=== PATIENT | male | born 1965 | race Caucasian/White ===

== ENCOUNTER 2017-06-29 06:00 | Inpatient (IN) ==
[2017-06-29] MEDS ORDERED: *HR* Midazolam HCl 2 MG/2 ML VIAL ONE ×2 (06:59→07:06)
[2017-06-29] MEDS ORDERED: *HR* FentaNYL (PF) 100 MCG/2 ML VIAL ONE (06:59)
[2017-06-29] MEDS ORDERED: Tirofiban 5 MG/100ML 5 MG/100 ML BAG IV ONE (07:10)
--- NOTE | 2017-06-29 08:23 | Invasive Diagnostic Lab Proc ---
Name: Torey Hale Date of Study: 06/29/2017 Date: 1965 Ht: 68.0in Medical Record#: [id number] Age: 52 Wt: 225.00lb Gender: Male BSA: 2.15 Order #: [id number] BMI: 34.21 Physicians Procedure Physician: Abraham Gamble MD, [facility] Referring MD: Referring MD: Staff Name Position Time In Rubi Galo RN Monitor 06:53 AM Sabas Walker RN Ham Rolling Machine Operator 06:53 AM Sheridan Dang RN Ham Rolling Machine Operator 06:53 AM Bette Villalobos RT Scrub 06:53 AM Merly Montero RT (R) Scrub Indications Indication STEMI Procedures Performed Procedure L HRT ARTERY/VENTRICLE ANGIO PRQ CARD REVASC NH 1 VSL Pre-Procedure Checklist Informed consent is complete signed and on chart. H&P is on chart. ID band is on and ID verified with patient. Patient NPO for procedure The procedure was described for the patient and questions were answered. Blood Pressure: 146/92 ECG is on chart. Rhythm: NSR Plan of Care Patient will tolerate the procedure without complications. Adequate level of comfort will be maintained. Hemodynamics will remain stable Patient will recover from procedure without complications. Respiratory function will be maintained. Cardiac rhythm will remain stable. Patient temperature will be maintained. Patient and/or family have verbalized understanding of the procedure. Patient Education Chief Complaint/Reason for Test: Cardiac Cath Developmental Category: Adult (18-64 years) Developmentally Appropriate for Age: Yes Learning Barriers: None Education Needs: Procedure Education Method: Verbal Information Taught: Cardiac Cath Educational Evaluation: Able to repeat information Intravenous Access Time IV Size Location DC'd Fluid/Drip Rate Units RN 06:44 AM 18g 1 1/4" Patent On Arrival Rt Rubi Montes RN 06:44 AM 20g 1 1/4" Patent On Arrival Lt AntecRubi Alva RN Allergies No Known Allergies Vital Signs Time BP (mmHg) HR (bpm) O2 Sat. RR (bpm) LOC 06:54 AM / % 5 = Fully awake and oriented or at pre-proc level 06:54 AM / % 4 = Oriented but drowsy 07:09 AM / % 4 = Oriented but drowsy 07:24 AM / % 4 = Oriented but drowsy 06:58 AM 146 / 92 91 97 % 16 07:03 AM 149 / 86 80 100 % 21 07:08 AM 116 / 79 86 90 % 19 07:14 AM 134 / 83 80 93 % 19 07:18 AM 135 / 79 78 97 % 19 07:23 AM 127 / 72 79 98 % 16 07:28 AM 130 / 78 81 98 % 17 07:33 AM 116 / 69 78 98 % 20 07:38 AM 120 / 76 77 96 % 16 07:43 AM 127 / 74 80 96 % 19 07:48 AM 111 / 68 76 95 % 20 07:53 AM 111 / 71 75 96 % 19 Procedural Medications Time Medication Dose Units Method Given By 07:03 AM Oxygen 2 L/min nasal cannula Sabas Walker RN 07:04 AM Versed 2 mg Intravenous Sabas Walker RN 07:04 AM Fentanyl 50 mcg Intravenous Sabas Walker RN 07:04 AM Lidocaine 2% 0.5 ml Subcutaneous Abraham Gamble MD, FACC 07:06 AM Nitroglycerin 200 mcg Verapamil 2.5 mg Intraarterial Abraham Gamble MD, FACC 07:07 AM Versed 1 mg Intravenous Sabas Walker RN 07:07 AM Fentanyl 25 mcg Intravenous Sabas Walker RN 07:09 AM Oxygen 6 L/min nasal cannula Sabas Walker RN 07:17 AM Aggrastat Bolus: 50 ml Intravenous Sheridan Dang RN 07:18 AM Aggrastat 5mg/100ml 18 ml Intravenous Sheridan Dang RN 07:23 AM Lovenox 30 mg Intravenous Sabas Walker RN 07:33 AM Nitroglycerin 200 mcg Intracoronary Abraham Gamble MD 07:38 AM Fentanyl 25 mcg Intravenous Sabas Walker RN 07:46 AM Nitroglycerin 200 mcg Intracoronary Abraham Gamble MD 07:49 AM Nitroglycerin 200 mcg Intracoronary Abraham Gamble MD ASA Classification: CLASS II- Mild systemic disease (i.e. well-controlled diabetes, hypertension, asthma, cigarette smoking) Erasmo Score Preprocedure Postprocedure Activity 2- Moves 4 extremities sustained head lift Activity 2- Moves 4 extremities sustained head lift Circulation 2- SBP +/= 20 points of pre-anesthetic level Circulation 2- SBP +/= 20 points of pre-anesthetic level Consciousness 2- Awake and alert oriented x 3 Consciousness 2- Awake and alert oriented x 3 O2 Saturation 2- Able to maintain O2 satruation of 92% on room air O2 Saturation 2- Able to maintain O2 satruation of 92% on room air Respiratory 2- Able to deep breathe and cough well Respiratory 2- Able to deep breathe and cough well Total Score 10 Total Score 10 Contrast Agent: Isovue Diagnostic Contrast: 229 ml Total Contrast: 229 ml Fluoro Dose: 1293 mGy Procedure Log Time Note Enter By 06:40 AM CathStat 06:53 AM Pt arrived to field laboratory operator 2 at 06:53 scoates 06:53 AM Patient charges- Angio tray pack, Navilyst 3mm J, Pulse Oximetry and ACIST tubing and transducer scoates 06:53 AM Rubi Galo RN Position: Monitor Time in: 06:53 scoates 06:53 AM Sabas Walker RN Position: Ham Rolling Machine Operator Time in: 06:53 scoates 06:53 AM Sheridan Dang RN Position: Ham Rolling Machine Operator Time in: 06:53 scoates 06:53 AM Bette Villalobos Position: Scrub Time in: 06:53 scoates 06:53 AM Case Delayed no scoates 06:54 AM Time: 06:54 Patient comfortable and pain free: No scoates 06:54 AM Complaint: Pain; Pain Score: 6 (1-10); Pain Location: Chest; Relief Measure: ; Response: . scoates 06:54 AM Time: 06:54LOC: 5 = Fully awake and oriented or at pre-proc level scoates 06:58 AM Vitals capture started with the following parameters, Patient=Adult, Interval=5 min, Initial Rhasxcvg=328 mmHg, Deflation Rate=5 mmHg, Cuff placed on Right Arm 06:58 AM HR=91 bpm, PLMK=378/92 mmhg, SpO2=97.0 %, Resp=16 B/min 07:00 AM Time: 07:00 Versed 2 mg Intravenous Given by Sabas Walker RN scoates 07:00 AM Time: 07:00 Fentanyl 50 mcg Intravenous Given by Sabas Walker RN scoates 07:00 AM Time: 07:00 Oxygen on at 2 L/min per nasal cannula by Sabas Walker RN scoates 07:03 AM Physician arrived 07:03 scoates 07:03 AM ASA Class CLASS II- Mild systemic disease (i.e. well-controlled diabetes, hypertension, asthma, cigarette smoking) scoates 07:03 AM Meet and greet completed scoates 07:03 AM Sign in performed according to hospital policy. scoates 07:03 AM HR=80 bpm, KLWW=973/86 mmhg, ZpQ7=918.0 %, Resp=21 B/min 07:04 AM Procedure start 07:04 scoates 07:04 AM Clinical Presentation: STEMI or equivalent scoates 07:04 AM Time out performed according to hospital policy scoates 07:04 AM Time: 07:04 0.5 ml Lidocaine 2% to right radial Subcutaneous Given by Abraham Gamble MD, [facility] scoates 07:05 AM Hair removed from procedure site in procedure lab using clippers. Right wrist and rt groin prepped with Chloraprep by Rubi Galo RN,then patient was draped. Skin intact. scoates 07:05 AM Merly Montero RT (R) Position: Scrub Time in: 704 to relieve Bette Villalobos RT scoates 07:06 AM Access obtained by percutaneous puncture. 6Fr 10cm Terumo Glidesheath sheath placed in right Radial artery. [id number] scoates 07:06 AM Time: 07:06 Patient given , 200 mcg Nitroglycerin, and 2.5 mg Verapamil Intraarterial by Abraham Gamble MD, [facility] scoates 07:07 AM 5Fr TIG catheter inserted over the wire [facility] scoates 07:07 AM Time: 07:07 Versed 1 mg Intravenous Given by Sabas Walker RN scoates 07:07 AM Time: 07:07 Fentanyl 25 mcg Intravenous Given by Sabas Walker RN scoates 07:08 AM HR=86 bpm, CBVQ=429/79 mmhg, SpO2=90.0 %, Resp=19 B/min 07:09 AM LCA angiography performed in multiple views. scoates 07:09 AM catheteter repositioned to the RCA scoates 07:09 AM Time: 06:54LOC: 4 = Oriented but drowsy scoates 07:09 AM RCA angiography performed in multiple views. scoates 07:09 AM Time: 07:09 Oxygen on at 6 L/min per nasal cannula by Sabas Walker RNoates 07:10 AM Pressure channel 1 zeroed. 07:14 AM HR=80 bpm, WJUI=887/83 mmhg, SpO2=93.0 %, Resp=19 B/min 07:16 AM Catheter removed scoates 07:16 AM PCI Status Emergency scoates 07:16 AM 6Fr CLS 3.0 Runway guide catheter was used to cannulate the PCI vessel successfully. reused? No scoates 07:17 AM .014 Hershey 190cm guide wire across target lesion- successful. reused? No scoates 07:17 AM Inflation device was opened. scoates 07:17 AM 2.25 mm x 12 mm Emerge Monorail balloon across target lesion- successful. reused? No scoates 07:17 AM Recorded Pressure: Ao, HR=80, Condition=Condition 1 (Aorta) Ao 121/83/102 07:18 AM Time: 07:17 Aggrastat Bolus: 50 ml Intravenous Given by Sheridan Dang RN Scott pump scoates 07:18 AM Time: 07:18 Aggrastat 5mg/100ml 18 ml Intravenous Given by Sheridan Dang RN Sctot pump scoates 07:18 AM Coronary Dominance: right scoates 07:18 AM Recorded Pressure: Ao, HR=79, Condition=Condition 1 (Aorta) Ao 127/86/106 07:18 AM HR=78 bpm, NVII=999/79 mmhg, SpO2=97.0 %, Resp=19 B/min, Comment=sr 07:20 AM Recorded Pressure: Ao, HR=77, Condition=Condition 1 (Aorta) Ao 115/79/96 07:23 AM Time: 07:23 Lovenox 30 mg Intravenous Given by Sabas Walker RN scoates 07:23 AM Balloon inflated @ 10 el for 14 seconds scoates 07:23 AM HR=79 bpm, HXEW=390/72 mmhg, SpO2=98.0 %, Resp=16 B/min 07:24 AM Time: 07:09 Patient comfortable and pain free: Yes scoates 07:24 AM Time: 07:09 Patient comfortable and pain free: Yes, patient resting at time scoates 07:24 AM Balloon inflated @ 10 el for 8 seconds scoates 07:25 AM Lesion found in Mid LAD. Pre Stenosis: 99 Pre STEPHANIE Flow: 1: Slow Penetration without Perfusion scoates 07:27 AM Balloon catheter removed intact. scoates 07:28 AM 3.5mm x 20mm Synergy drug-eluting stent across target lesion- successful Lot #[id number] scoates 07:28 AM HR=81 bpm, QHWW=549/78 mmhg, SpO2=98.0 %, Resp=17 B/min, Comment=sr 07:29 AM Recorded Pressure: Ao, HR=81, Condition=Condition 1 (Aorta) Ao 129/90/109 07:32 AM Stent deployed @ 11 el for 18 seconds scoates 07:33 AM Time: 07:33 Nitroglycerin 200 mcg Intracoronary Given by Abraham Gamble MD scoates 07:33 AM HR=78 bpm, ZPJB=315/69 mmhg, SpO2=98.0 %, Resp=20 B/min, Comment=sr 07:34 AM Stent delivery system removed intact. scoates 07:34 AM 3.5 mm x 12mm NC Trek Rx balloon across target lesion- successful. reused? No scoates 07:36 AM Balloon inflated @ 14 el for 16 seconds scoates 07:37 AM Balloon inflated @ 16 el for 18 seconds scoates 07:38 AM Complaint: Pain; Pain Score: 3 (1-10); Pain Location: Chest; Relief Measure: Medication, and physician aware; Response: pt awake and having some chest pain with the inflation of the balloon scoates 07:38 AM Time: 07:38 Fentanyl 25 mcg Intravenous Given by Sabas Walker RN scoates 07:38 AM Balloon inflated @ 18 el for 14 seconds scoates 07:38 AM HR=77 bpm, QJHB=428/76 mmhg, SpO2=96.0 %, Resp=16 B/min, Comment=sr 07:39 AM Recorded Pressure: Ao, HR=78, Condition=Condition 1 (Aorta) Ao 117/81/99 07:39 AM Time: 07:24 Patient comfortable and pain free: Yes scoates 07:39 AM Time: 07:24LOC: 4 = Oriented but drowsy scoates 07:39 AM Balloon inflated @ 18 el for 16 seconds scoates 07:41 AM Balloon catheter removed intact. scoates 07:43 AM Guide wire removed intact. scoates 07:43 AM Lesion found in Proximal LAD. Pre Stenosis: 50 Pre STEPHANIE Flow: scoates 07:43 AM HR=80 bpm, GESR=573/74 mmhg, SpO2=96.0 %, Resp=19 B/min, Comment=sr 07:44 AM Complaint: Pain; Pain Score: 4 (1-10); Pain Location: Chest; Relief Measure: aware; Response: . scoates 07:46 AM Time: 07:46 Nitroglycerin 200 mcg Intracoronary Given by Abraham Gamble MD scoates 07:48 AM Guide catheter removed intact. scoates 07:48 AM 5Fr Pigtail catheter inserted over the wire [facility] scoates 07:48 AM Catheter selectively placed in left ventricle scoates 07:48 AM Bolus angiogram of left Ventricle complete: 12 ml/sec for a total of 30 mls scoates 07:48 AM HR=76 bpm, ECES=079/68 mmhg, SpO2=95.0 %, Resp=20 B/min, Comment=sr 07:49 AM Recorded Pressure: LV, HR=79, Condition=Condition 1 (Left Ventricle) LV 103/14/17 07:49 AM Pressure channel 1 zeroed. 07:49 AM Recorded Pressure: LV, HR=78, Condition=Condition 1 (Left Ventricle) LV 115/34/35 07:50 AM Recorded Pressure: LV, HR=76, Condition=Condition 1 (Left Ventricle) LV 124/21/31 07:50 AM Time: 07:49 Nitroglycerin 200 mcg Intracoronary Given by Abraham Gamlbe MD scoates 07:50 AM Recorded Pressure: LV, Ao, HR=82, Condition=Condition 1 (Left Ventricle) LV 122/19/51, (Aorta) Ao 107/72/90 07:52 AM Catheter removed scoates 07:53 AM Procedure completed at 07:53 scoates 07:53 AM HR=75 bpm, VJPV=942/71 mmhg, SpO2=96.0 %, Resp=19 B/min 07:54 AM Sign out completed: Radiation Dose 1293 mGy Fluoro Time: 12.0 Isovue 370 - 200ml contrast 229 ml given by Abraham Gamble MD, [facility]. Complications: NoneCardiac Rehab Consult needed: YesConfirmed administered medications: Yes scoates 07:54 AM Isovue 370 - 200ml,1 Bottle(s) used. scoates 07:54 AM Arterial sheath pulled, Vasc Band closure device used and was Successful S/N. scoates 07:54 AM 10 ml air in Vasc Band. scoates 07:55 AM Estimated Blood Loss: minimal scoates 07:55 AM Post ECG NSR scoates 07:55 AM Post Blood Pressure 111/71 scoates 08:01 AM Information taught Cardiac Cath, Vasc Band, and PCI scoates 08:01 AM Time: 08:01 Patient comfortable and pain free: Yes scoates 08:01 AM Complaint: ; Pain Score: 0 (1-10); Pain Location: ; Relief Measure: ; Response: . scoates 08:01 AM Education needs Procedure, Plan of Care, and Responsibilities of Patient in Care scoates 08:02 AM Learning barriers :None scoates 08:02 AM Education Methods Verbal scoates 08:02 AM Education evaluation Able to repeat information scoates 08:03 AM Site status No bleeding/hematoma - Rt Wrist as reported by Merly Montero RT (R) at 08:02 scoates 08:03 AM Plavix, Effient or Brilinta given No, given at [facility] scoates 08:04 AM Delay to floor No scoates 08:04 AM family not here at this time scoates 08:04 AM Complications: None scoates 08:04 AM Fluoro Time: 12 scoates 08:04 AM Isovue 370 - 200ml contrast 229 ml given by Abraham Gamble MD, [facility]. scoates 08:04 AM Radiation Dose 1293 mGy scoates 08:08 [address] Gamble will talk with family scoates 08:09 AM Report given to Sofy PEARSON Pt taken to ICU Room #4. 08:09 scoates 08:09 AM Patient out of room: 08:09 scoates 08:09 AM Lesion found in Mid Circumflex. Pre Stenosis: 70 Pre STEPHANIE Flow: scoates 08:12 AM Proximal Left Anterior Descending Coronary Artery with 50% stenosis. If graft is supplying this territory, 0 % stenosis. scoates 08:12 AM Mid/Distal Left Anterior Descending Coronary Artery and diagonal branches with 99% stenosis. If graft is supplying this area, 0 % stenosis scoates 08:12 AM Circumflex, Obtuse Marginal, Left Posterior Descending, and Left Posterolateral Coronary Arteries with 70 % stenosis. If graft is supplying this area, 0 % stenosis scoates Complications Complication None None Hemodynamics Pressures Site Systolic/A Wave Diastolic/V Wave Mean AO 121 83 102 AO 127 86 106 AO 115 79 96 AO 129 90 109 AO 117 81 99 LV 103 14 17 LV 115 34 35 LV 124 21 31 LV 122 19 51 AO 107 72 90 Post Procedure Information Blood Pressure: 111/71 mmHg Rhythm: NSR Post procedural instructions were given Closure Device Time Device Success/Fail 06/29/2017 7:54:00 AM Mechanical Compression Successful Site Checks Time Location Status Staff Sheath In? Note 08:02 AM Rt Wrist No bleeding/hematoma Merly Montero RT (R) Pulses Time Site Pre-Procedure Post-Procedure Note 06/29/2017 7:57:00 AM Rt Radial 1+ 06/29/2017 7:58:00 AM Bilateral DP & PT 2+ 06/29/2017 7:00:00 AM Bilateral DP & PT 2+ 06/29/2017 7:00:00 AM Rt Radial 1+ Updated by Rubi Palumbo RN on 06/29/2017 8:14:16 AM electronically signed on 06/29/2017 8:15:52 AM with status of Final
[2017-06-29] MEDS ORDERED: Nitroglycerin 0.4 MG TAB.SUBL SL PRN (09:37)
[2017-06-29] MEDS ORDERED: *HR* Morphine 2 MG/ML SYRINGE IVP PRN (09:37)
[2017-06-29] MEDS ORDERED: Ondansetron 4 MG/2 ML VIAL IVP PRN (09:37)
--- NOTE | 2017-06-29 09:37 | Pre-Sedation Evaluation ---
Pre-sedation evaluation - Pre-sedation checklist Date of procedure: 06/29/17 Procedure: [facility] Recent Vitals: Last Vital Signs Temp 97.6 F 06/29/17 08:30 Pulse 64 06/29/17 09:14 Resp 16 06/29/17 09:14 BP 120/72 06/29/17 09:14 Pulse Ox 92 06/29/17 09:14 H&P (including ROS) documented in medical record: Yes Previous reaction to sedatives/anesthetics: No Dietary Status: unknown Airway Assessment: Patient can open mouth completely, TMJ function normal ASA Classification *see protocol: CLASS II-Mild systemic disease, E-EMERGENCY- Add to any of the above to indicate emergent Plan of Care: Pt appropriate candidate for procedure/moderate/conscious sedation , Risks/benefits of procedure/sedation discussed w/ patient/family, If not NPO; Risk of intake outweiged by necessity to perform procedure
[2017-06-29] MEDS ORDERED: *HR* HYDROcodone/Acet 5/325 mg TABLET PO PRN (09:44)
[2017-06-29] MEDS ORDERED: Acetaminophen 325 MG TABLET PO PRN (09:44)
--- NOTE | 2017-06-29 09:47 | Cardiology History & Physical ---
Date of Encounter: 06/29/17 Time of Encounter: 10:00 Assessment and Plan (1) ST elevation myocardial infarction (STEMI) Current Visit: No Status: Acute A/R/B of [facility] discussed including 1% risk of /CVA/CABG/ADELINE/bleeding. Given emergent circumstances, patient agreeable with proceeding understanding risks. EF assessment will be completed. SC Lovenox used at [facility], Brilinta crushed with aspirin. Will give IV bolus lovenox per PCI/STEMI protocol. Cardiac rehab order. alf DAPT is anticipated. The assessment and plan as outlined above was discussed with the patient and/or family members who expressed understanding and agreement. All questions were answered. Qualifiers: Involved coronary artery: LAD coronary artery Qualified Code(s): I21.02 - ST elevation (STEMI) myocardial infarction involving left anterior descending coronary artery (2) Dyslipidemia Current Visit: Yes Status: Acute Crestor 40mg daily - high intensity for CA. The assessment and plan as outlined above was discussed with the patient and/or family members who expressed understanding and agreement. All questions were answered. History of Present Illness Chief complaint: severe chest pain HPI: Mr. Hale is a 52 year old male with no previous cardiac history presents with sudden onset severe chest pressure radiating down both arms associated with dyspnea starting around 3am that awoke him from sleep. He had minimal improvement with NTG/aspirin and EKG was concerning for evolving anterior CA. 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 Past Med Surg Social Fam HX - Past Medical History Medical history: diabetes, GERD, hypertension, kidney stones, other Psychiatric history: no psych history - Past Surgical History Surgical History: other - Social History Smoking Status: Never smoker Smokeless Tobacco Status: No Alcohol use: none Drug use: none Medications and Allergies Unable To Obtain [Unable to Obtain] 06/29/17 [History] 3 Allergy/AdvReac Type Severity Reaction Status Date / Time No Known Allergies Allergy Verified 06/29/17 05:26 All Systems Review: A 10-system review of systems was performed and is negative for pertinent findings except as documented above in the HPI. - Constitutional Constitutional: no chills, no fever(s) - EENT Eyes: no blurred vision, no loss of vision Nose, mouth and throat: no bleeding gums, no epistaxis - Cardiovascular Cardiovascular: chest pain at rest, chest pain with exertion - Respiratory Respiratory: dyspnea, no hemoptysis - Gastrointestinal Gastrointestinal: no hematemesis, no hematochezia - Genitourinary Genitourinary: no dysuria, no hematuria - Musculoskeletal Musculoskeletal: no arthralgias, no myalgias - Integumentary Integumentary: no erythema, no rash - Neurological Neurological: no syncope, no tingling - Psychiatric Psychiatric: no anxiety, no depression - Hematological/Lymphatic Hematologic/Lymphatic: no easy bleeding, no easy bruising Physical Examination Vital Signs, Last 4 Hours Temp Pulse Resp BP Pulse Ox 06/29/17 09:14 64 16 120/72 92 06/29/17 08:50 64 16 119/72 92 06/29/17 08:40 66 16 106/68 92 06/29/17 08:30 97.6 F 68 16 106/68 92 General: Conversant, Other (distressed) HEENT: Atraumatic Neck: No JVD Cardiac: Reg Rate and Rhythm Lungs: Normal Breath Sounds Neuro: No focal deficits noted Abdomen: Non-Tender Skin: No rashes noted on visualized skin Musculoskeletal: No Chest Wall Tenderness Extremities: No Edema Results - EKG Interpretation EKG results cardiology: personally reviewed, sinus rhythm (anterolateral current of injury)
--- NOTE | 2017-06-29 18:28 | Invasive Diagnostic Lab Proc ---
Name: Torey Hale Date of Study: 06/29/2017 Date: 1965 Ht: 68.0in Medical Record#: [id number] Age: 52 Wt: 225.00lb Gender: Male BSA: 2.15 Order #: [id number] BMI: 34.21 Physicians Procedure Physician: Abraham Gamble MD, [facility] Referring MD: Referring MD: Staff Name Position Time In Rubi Galo RN Monitor 06:53 AM Sabas Walker RN Railroad Car Checker 06:53 AM Sheridan Dang RN Railroad Car Checker 06:53 AM Bette Villalobos RT Scrub 06:53 AM Merly Montero RT (R) Scrub Indications Indication STEMI Procedures Performed Procedure L HRT ARTERY/VENTRICLE ANGIO PRQ CARD REVASC AL 1 VSL Pre-Procedure Checklist Informed consent is complete signed and on chart. H&P is on chart. ID band is on and ID verified with patient. Patient NPO for procedure The procedure was described for the patient and questions were answered. Blood Pressure: 146/92 ECG is on chart. Rhythm: NSR Plan of Care Patient will tolerate the procedure without complications. Adequate level of comfort will be maintained. Hemodynamics will remain stable Patient will recover from procedure without complications. Respiratory function will be maintained. Cardiac rhythm will remain stable. Patient temperature will be maintained. Patient and/or family have verbalized understanding of the procedure. Patient Education Chief Complaint/Reason for Test: Cardiac Cath Developmental Category: Adult (18-64 years) Developmentally Appropriate for Age: Yes Learning Barriers: None Education Needs: Procedure Education Method: Verbal Information Taught: Cardiac Cath Educational Evaluation: Able to repeat information Intravenous Access Time IV Size Location DC'd Fluid/Drip Rate Units RN 06:44 AM 18g 1 1/4" Patent On Arrival Rt Rubi Montes RN 06:44 AM 20g 1 1/4" Patent On Arrival Lt AntecRubi Alva RN Allergies No Known Allergies Vital Signs Time BP (mmHg) HR (bpm) O2 Sat. RR (bpm) LOC 06:54 AM / % 5 = Fully awake and oriented or at pre-proc level 06:54 AM / % 4 = Oriented but drowsy 07:09 AM / % 4 = Oriented but drowsy 07:24 AM / % 4 = Oriented but drowsy 06:58 AM 146 / 92 91 97 % 16 07:03 AM 149 / 86 80 100 % 21 07:08 AM 116 / 79 86 90 % 19 07:14 AM 134 / 83 80 93 % 19 07:18 AM 135 / 79 78 97 % 19 07:23 AM 127 / 72 79 98 % 16 07:28 AM 130 / 78 81 98 % 17 07:33 AM 116 / 69 78 98 % 20 07:38 AM 120 / 76 77 96 % 16 07:43 AM 127 / 74 80 96 % 19 07:48 AM 111 / 68 76 95 % 20 07:53 AM 111 / 71 75 96 % 19 Procedural Medications Time Medication Dose Units Method Given By 07:03 AM Oxygen 2 L/min nasal cannula Sabas Walker RN 07:04 AM Versed 2 mg Intravenous Sabas Walker RN 07:04 AM Fentanyl 50 mcg Intravenous Sabas Walker RN 07:04 AM Lidocaine 2% 0.5 ml Subcutaneous Abraham Gamble MD, FACC 07:06 AM Nitroglycerin 200 mcg Verapamil 2.5 mg Intraarterial Abraham Gamble MD, FACC 07:07 AM Versed 1 mg Intravenous Sabas Walker RN 07:07 AM Fentanyl 25 mcg Intravenous Sabas Walker RN 07:09 AM Oxygen 6 L/min nasal cannula Sabas Walker RN 07:17 AM Aggrastat Bolus: 50 ml Intravenous Sheridan Dang RN 07:18 AM Aggrastat 5mg/100ml 18 ml Intravenous Sheridan Dang RN 07:23 AM Lovenox 30 mg Intravenous Sabas Walker RN 07:33 AM Nitroglycerin 200 mcg Intracoronary Abraham Gamble MD 07:38 AM Fentanyl 25 mcg Intravenous Sabas Walker RN 07:46 AM Nitroglycerin 200 mcg Intracoronary Abraham Gamble MD 07:49 AM Nitroglycerin 200 mcg Intracoronary Abraham Gamble MD ASA Classification: CLASS II- Mild systemic disease (i.e. well-controlled diabetes, hypertension, asthma, cigarette smoking) Emergent Procedure: ASA score is assumed Erasmo Score Preprocedure Postprocedure Activity 2- Moves 4 extremities sustained head lift Activity 2- Moves 4 extremities sustained head lift Circulation 2- SBP +/= 20 points of pre-anesthetic level Circulation 2- SBP +/= 20 points of pre-anesthetic level Consciousness 2- Awake and alert oriented x 3 Consciousness 2- Awake and alert oriented x 3 O2 Saturation 2- Able to maintain O2 satruation of 92% on room air O2 Saturation 2- Able to maintain O2 satruation of 92% on room air Respiratory 2- Able to deep breathe and cough well Respiratory 2- Able to deep breathe and cough well Total Score 10 Total Score 10 Contrast Agent: Isovue Diagnostic Contrast: 229 ml Total Contrast: 229 ml Fluoro Dose: 1293 mGy Procedure Log Time Note Enter By 06:40 AM CathStat 06:53 AM Pt arrived to micro lab analyst 2 at 06:53 scoates 06:53 AM Patient charges- Angio tray pack, Navilyst 3mm J, Pulse Oximetry and ACIST tubing and transducer scoates 06:53 AM Rubi Galo RN Position: Monitor Time in: 06:53 scoates 06:53 AM Sabas Walker RN Position: Railroad Car Checker Time in: 06:53 scoates 06:53 AM Sheridan Dang RN Position: Railroad Car Checker Time in: 06:53 scoates 06:53 AM Bette Villalobos Position: Scrub Time in: 06:53 scoates 06:53 AM Case Delayed no scoates 06:54 AM Time: 06:54 Patient comfortable and pain free: No scoates 06:54 AM Complaint: Pain; Pain Score: 6 (1-10); Pain Location: Chest; Relief Measure: ; Response: . scoates 06:54 AM Time: 06:54LOC: 5 = Fully awake and oriented or at pre-proc level scoates 06:58 AM Vitals capture started with the following parameters, Patient=Adult, Interval=5 min, Initial Ltltvbse=702 mmHg, Deflation Rate=5 mmHg, Cuff placed on Right Arm 06:58 AM HR=91 bpm, DTQG=110/92 mmhg, SpO2=97.0 %, Resp=16 B/min 07:00 AM Time: 07:00 Versed 2 mg Intravenous Given by Sabas Walker RN scoates 07:00 AM Time: 07:00 Fentanyl 50 mcg Intravenous Given by Sabas Walker RN scoates 07:00 AM Time: 07:00 Oxygen on at 2 L/min per nasal cannula by Sabas Walker RN scoates 07:03 AM Physician arrived 07:03 scoates 07:03 AM ASA Class CLASS II- Mild systemic disease (i.e. well-controlled diabetes, hypertension, asthma, cigarette smoking) scoates 07:03 AM Meet and greet completed scoates 07:03 AM Sign in performed according to hospital policy. scoates 07:03 AM HR=80 bpm, AMUB=950/86 mmhg, MdJ0=438.0 %, Resp=21 B/min 07:04 AM Procedure start 07:04 scoates 07:04 AM Clinical Presentation: STEMI or equivalent scoates 07:04 AM Time out performed according to hospital policy scoates 07:04 AM Time: 07:04 0.5 ml Lidocaine 2% to right radial Subcutaneous Given by Abraham Gamble MD, [facility] scoates 07:05 AM Hair removed from procedure site in procedure lab using clippers. Right wrist and rt groin prepped with Chloraprep by Rubi Galo RN,then patient was draped. Skin intact. scoates 07:05 AM Merly Montero RT (R) Position: Scrub Time in: 704 to relieve Bette Villalobos RT scoates 07:06 AM Access obtained by percutaneous puncture. 6Fr 10cm Terumo Glidesheath sheath placed in right Radial artery. [id number] scoates 07:06 AM Time: 07:06 Patient given , 200 mcg Nitroglycerin, and 2.5 mg Verapamil Intraarterial by Abraham Gamble MD, [facility] scoates 07:07 AM 5Fr TIG catheter inserted over the wire [facility] scoates 07:07 AM Time: 07:07 Versed 1 mg Intravenous Given by Sabas Walker RN scoates 07:07 AM Time: 07:07 Fentanyl 25 mcg Intravenous Given by Sabas Walker RN scoates 07:08 AM HR=86 bpm, ZEXY=238/79 mmhg, SpO2=90.0 %, Resp=19 B/min 07:09 AM LCA angiography performed in multiple views. scoates 07:09 AM catheteter repositioned to the RCA scoates 07:09 AM Time: 06:54LOC: 4 = Oriented but drowsy scoates 07:09 AM RCA angiography performed in multiple views. scoates 07:09 AM Time: 07:09 Oxygen on at 6 L/min per nasal cannula by Sabas Walker RNoates 07:10 AM Pressure channel 1 zeroed. 07:14 AM HR=80 bpm, KORO=341/83 mmhg, SpO2=93.0 %, Resp=19 B/min 07:16 AM Catheter removed scoates 07:16 AM PCI Status Emergency scoates 07:16 AM 6Fr CLS 3.0 Runway guide catheter was used to cannulate the PCI vessel successfully. reused? No scoates 07:17 AM .014 [place] 190cm guide wire across target lesion- successful. reused? No scoates 07:17 AM Inflation device was opened. scoates 07:17 AM 2.25 mm x 12 mm Emerge Monorail balloon across target lesion- successful. reused? No scoates 07:17 AM Recorded Pressure: Ao, HR=80, Condition=Condition 1 (Aorta) Ao 121/83/102 07:18 AM Time: 07:17 Aggrastat Bolus: 50 ml Intravenous Given by Sheridan Dang RN Scott pump scoates 07:18 AM Time: 07:18 Aggrastat 5mg/100ml 18 ml Intravenous Given by Sheridan Dang RN Scott pump scoates 07:18 AM Coronary Dominance: right scoates 07:18 AM Recorded Pressure: Ao, HR=79, Condition=Condition 1 (Aorta) Ao 127/86/106 07:18 AM HR=78 bpm, CTAP=368/79 mmhg, SpO2=97.0 %, Resp=19 B/min, Comment=sr 07:20 AM Recorded Pressure: Ao, HR=77, Condition=Condition 1 (Aorta) Ao 115/79/96 07:23 AM Time: 07:23 Lovenox 30 mg Intravenous Given by Sabas Walker RN scoates 07:23 AM Balloon inflated @ 10 el for 14 seconds scoates 07:23 AM HR=79 bpm, MPOJ=691/72 mmhg, SpO2=98.0 %, Resp=16 B/min 07:24 AM Time: 07:09 Patient comfortable and pain free: Yes scoates 07:24 AM Time: 07:09 Patient comfortable and pain free: Yes, patient resting at time scoates 07:24 AM Balloon inflated @ 10 el for 8 seconds scoates 07:25 AM Lesion found in Mid LAD. Pre Stenosis: 99 Pre STEPHANIE Flow: 1: Slow Penetration without Perfusion scoates 07:27 AM Balloon catheter removed intact. scoates 07:28 AM 3.5mm x 20mm Synergy drug-eluting stent across target lesion- successful Lot #[id number] scoates 07:28 AM HR=81 bpm, KILB=658/78 mmhg, SpO2=98.0 %, Resp=17 B/min, Comment=sr 07:29 AM Recorded Pressure: Ao, HR=81, Condition=Condition 1 (Aorta) Ao 129/90/109 07:32 AM Stent deployed @ 11 el for 18 seconds scoates 07:33 AM Time: 07:33 Nitroglycerin 200 mcg Intracoronary Given by Abraham Gamble MD scoates 07:33 AM HR=78 bpm, RMBZ=965/69 mmhg, SpO2=98.0 %, Resp=20 B/min, Comment=sr 07:34 AM Stent delivery system removed intact. scoates 07:34 AM 3.5 mm x 12mm NC Trek Rx balloon across target lesion- successful. reused? No scoates 07:36 AM Balloon inflated @ 14 el for 16 seconds scoates 07:37 AM Balloon inflated @ 16 el for 18 seconds scoates 07:38 AM Complaint: Pain; Pain Score: 3 (1-10); Pain Location: Chest; Relief Measure: Medication, and physician aware; Response: pt awake and having some chest pain with the inflation of the balloon scoates 07:38 AM Time: 07:38 Fentanyl 25 mcg Intravenous Given by Sabas Walker RN scoates 07:38 AM Balloon inflated @ 18 el for 14 seconds scoates 07:38 AM HR=77 bpm, UZLO=759/76 mmhg, SpO2=96.0 %, Resp=16 B/min, Comment=sr 07:39 AM Recorded Pressure: Ao, HR=78, Condition=Condition 1 (Aorta) Ao 117/81/99 07:39 AM Time: 07:24 Patient comfortable and pain free: Yes scoates 07:39 AM Time: 07:24LOC: 4 = Oriented but drowsy scoates 07:39 AM Balloon inflated @ 18 el for 16 seconds scoates 07:41 AM Balloon catheter removed intact. scoates 07:43 AM Guide wire removed intact. scoates 07:43 AM Lesion found in Proximal LAD. Pre Stenosis: 50 Pre STEPHANIE Flow: scoates 07:43 AM HR=80 bpm, YNDX=784/74 mmhg, SpO2=96.0 %, Resp=19 B/min, Comment=sr 07:44 AM Complaint: Pain; Pain Score: 4 (1-10); Pain Location: Chest; Relief Measure: aware; Response: . scoates 07:46 AM Time: 07:46 Nitroglycerin 200 mcg Intracoronary Given by Abraham Gamble MD scoates 07:48 AM Guide catheter removed intact. scoates 07:48 AM 5Fr Pigtail catheter inserted over the wire [facility] scoates 07:48 AM Catheter selectively placed in left ventricle scoates 07:48 AM Bolus angiogram of left Ventricle complete: 12 ml/sec for a total of 30 mls scoates 07:48 AM HR=76 bpm, IOBD=479/68 mmhg, SpO2=95.0 %, Resp=20 B/min, Comment=sr 07:49 AM Recorded Pressure: LV, HR=79, Condition=Condition 1 (Left Ventricle) LV 103/14/17 07:49 AM Pressure channel 1 zeroed. 07:49 AM Recorded Pressure: LV, HR=78, Condition=Condition 1 (Left Ventricle) LV 115/34/35 07:50 AM Recorded Pressure: LV, HR=76, Condition=Condition 1 (Left Ventricle) LV 124/21/31 07:50 AM Time: 07:49 Nitroglycerin 200 mcg Intracoronary Given by Abraham Gamble MD scoates 07:50 AM Recorded Pressure: LV, Ao, HR=82, Condition=Condition 1 (Left Ventricle) LV 122/19/51, (Aorta) Ao 107/72/90 07:52 AM Catheter removed scoates 07:53 AM Procedure completed at 07:53 scoates 07:53 AM HR=75 bpm, VCYR=192/71 mmhg, SpO2=96.0 %, Resp=19 B/min 07:54 AM Sign out completed: Radiation Dose 1293 mGy Fluoro Time: 12.0 Isovue 370 - 200ml contrast 229 ml given by Abraham Gamble MD, [facility]. Complications: NoneCardiac Rehab Consult needed: YesConfirmed administered medications: Yes scoates 07:54 AM Isovue 370 - 200ml,1 Bottle(s) used. scoates 07:54 AM Arterial sheath pulled, Vasc Band closure device used and was Successful S/N. scoates 07:54 AM 10 ml air in Vasc Band. scoates 07:55 AM Estimated Blood Loss: minimal scoates 07:55 AM Post ECG NSR scoates 07:55 AM Post Blood Pressure 111/71 scoates 08:01 AM Information taught Cardiac Cath, Vasc Band, and PCI scoates 08:01 AM Time: 08:01 Patient comfortable and pain free: Yes scoates 08:01 AM Complaint: ; Pain Score: 0 (1-10); Pain Location: ; Relief Measure: ; Response: . scoates 08:01 AM Education needs Procedure, Plan of Care, and Responsibilities of Patient in Care scoates 08:02 AM Learning barriers :None scoates 08:02 AM Education Methods Verbal scoates 08:02 AM Education evaluation Able to repeat information scoates 08:03 AM Site status No bleeding/hematoma - Rt Wrist as reported by Merly Montero RT (R) at 08:02 scoates 08:03 AM Plavix, Effient or Brilinta given No, given at [facility] scoates 08:04 AM Delay to floor No scoates 08:04 AM family not here at this time scoates 08:04 AM Complications: None scoates 08:04 AM Fluoro Time: 12 scoates 08:04 AM Isovue 370 - 200ml contrast 229 ml given by Abraham Gamble MD, [facility]. scoates 08:04 AM Radiation Dose 1293 mGy scoates 08:08 AM family arrived[address] Dr[address] Gamble will talk with family scoates 08:09 AM Report given to Sofy PEARSON Pt taken to ICU Room #4. 08:09 scoates 08:09 AM Patient out of room: 08:09 scoates 08:09 AM Lesion found in Mid Circumflex. Pre Stenosis: 70 Pre STEPHANIE Flow: scoates 08:12 AM Proximal Left Anterior Descending Coronary Artery with 50% stenosis. If graft is supplying this territory, 0 % stenosis. scoates 08:12 AM Mid/Distal Left Anterior Descending Coronary Artery and diagonal branches with 99% stenosis. If graft is supplying this area, 0 % stenosis scoates 08:12 AM Circumflex, Obtuse Marginal, Left Posterior Descending, and Left Posterolateral Coronary Arteries with 70 % stenosis. If graft is supplying this area, 0 % stenosis scoates Complications Complication None None Hemodynamics Pressures Site Systolic/A Wave Diastolic/V Wave Mean AO 121 83 102 AO 127 86 106 AO 115 79 96 AO 129 90 109 AO 117 81 99 LV 103 14 17 LV 115 34 35 LV 124 21 31 LV 122 19 51 AO 107 72 90 Post Procedure Information Blood Pressure: 111/71 mmHg Rhythm: NSR Post procedural instructions were given Closure Device Time Device Success/Fail 06/29/2017 7:54:00 AM Mechanical Compression Successful Site Checks Time Location Status Staff Sheath In? Note 08:02 AM Rt Wrist No bleeding/hematoma Merly Montero RT (R) Pulses Time Site Pre-Procedure Post-Procedure Note 06/29/2017 7:57:00 AM Rt Radial 1+ 06/29/2017 7:58:00 AM Bilateral DP & PT 2+ 06/29/2017 7:00:00 AM Bilateral DP & PT 2+ 06/29/2017 7:00:00 AM Rt Radial 1+ Updated by Sabas Walker RN on 06/29/2017 6:24:12 PM electronically signed on 06/29/2017 6:24:40 PM with status of Final
[2017-06-29] MEDS: *HR* Ticagrelor 90 MG TABLET PO SCH (19:57)
[2017-06-30 04:33] LABS: Basophils # 0.1 K/mcL (0.0-0.2); Basophils % 0.4 %; Eosinophils # 0.2 K/mcL (0.0-0.6); Eosinophils % 1.6 %; Hematocrit 37.2 % (37.5-50.1); Hemoglobin 12.3 g/dL (12.9-16.9); Immature Granulocytes % 0.4 % (0-4); Lymphocytes # 1.9 K/mcL (0.6-4.6); Lymphocytes % 16.4 %; Mean Corpuscular HGB Conc 33.1 g/dL (31.6-35.5); Mean Corpuscular Hemoglobin 28.2 pg (28.0-33.3); Mean Corpuscular Volume 85.3 fL (83.0-100.0); Mean Platelet Volume 11.1 fL (9.4-12.4); Monocytes # 1.1 K/mcL (0.0-1.3); Monocytes % 9.3 %; Neutrophils # 8.2 K/mcL (1.6-8.9); Platelet Count 191 K/mcL (140-400); Red Blood Count 4.36 M/mcL (4.19-5.50); Red Cell Distribution Width 11.9 % (11.5-14.5); Segmented Neutrophils % 71.9 %
[2017-06-30 04:42] LABS: Hemoglobin A1C 6.5 %
[2017-06-30 04:57] LABS: BUN/Creatinine Ratio 24 (6-26); Blood Urea Nitrogen 21 mg/dL (8-26); Calcium 8.7 mg/dL (8.6-10.8); Carbon Dioxide 26 mEq/L (19-29); Chloride 101 mEq/L (98-109); Glucose 169 mg/dL (70-99); Osmolality,Calculated 283 (280-300); Potassium 3.7 mEq/L (3.5-4.5); Sodium 133 mEq/L (136-145); eGFR For African Americans > 60 (> 60); eGFR For Non-African Americans > 60 (> 60)
[2017-06-30] MEDS ORDERED: *HR* Enoxaparin 40 MG/0.4 ML SYRINGE SQ SCH (06:00)
[2017-06-30] MEDS: *HR* Ticagrelor 90 MG TABLET PO SCH ×2 (08:12→19:22)
[2017-06-30] MEDS ORDERED: Metoprolol XL (24 HR) Succ 25 MG TAB.ER.24H PO SCH (09:00)
[2017-06-30] MEDS ORDERED: Aspirin 81 MG TAB.CHEW PO SCH (09:00)
[2017-06-30] MEDS ORDERED: Perflutren Lipid Microsphere 1.3 ML in 0.9 % Sodium Chloride 8.7 ML IVP ONE (09:11)
[2017-06-30] MEDS ORDERED: Perflutren Lipid Microsphere 2 ML VIAL ONE (09:14)
--- NOTE | 2017-06-30 10:23 | Cardiology Progress Note ---
Date of Encounter: 06/30/17 Time of Encounter: 09:10 Assessment and Plan (1) Acute FL Current Visit: Yes Status: Acute Patient presented with chest pain. Due to persistent chest pain and EKG findings there was concern for evoling acute anterior FL. He received PCI and LOPEZ to a 99% stenosis in the mLAD. There was a 70% mLCX stenosis and 50% pLAD stenosis remaining. EF 40%. Plan for staged PCI to the LCX artery in the out-pt setting if he has recurrent symptoms. TTE pending. There was no complication from his procedure. Importance of DAPT with asa and brilinta uninterrupted for minimum of one year reviewed with patient and he voiced understanding. Continue statin and bb. There was no complication with his right groin access site. Activity restrictions reviewed as stated above. Phase one cardiac rehab ordered. Step down to telemetry floor today and ambulate. If no recurrent symptoms likely d/c in the morning. Qualifiers: Myocardial infarction ST status: non-ST elevation myocardial infarction Qualified Code(s): I21.4 - Non-ST elevation (NSTEMI) myocardial infarction (2) Dyslipidemia Current Visit: Yes Status: Acute Crestor 40mg daily - high intensity for FL. The assessment and plan as outlined above was discussed with the patient and/or family members who expressed understanding and agreement. All questions were answered. Discussion w patient/family: The assessment and plan as outlined above was discussed with the patient and/or family members who expressed understanding and agreement. All questions were answered. Thank you for involving us in the care of your patient. Please call with any questions. Subjective Principal diagnosis: Acute FL Interval history: Mr. Hale denies recurrent chest pain. He is s/p PCI to his mLAD 99% severe stenosis. There was no complications. Denies problems with right radial access site. Objective Vital Signs, Last 4 Hours Temp Pulse Resp BP Pulse Ox 06/30/17 09:00 75 16 112/71 97 06/30/17 08:00 79 16 113/73 96 06/30/17 07:40 98.6 F 06/30/17 07:32 71 06/30/17 07:31 95 06/30/17 07:00 70 16 112/78 95 General: Conversant, No Apparent Distress HEENT: Atraumatic, Normocephaly, Mucus Membranes Moist Neck: No JVD, Normal carotid pulses Cardiac: Reg Rate and Rhythm, Normal S1 and S2, No Murmur Lungs: Normal Breath Sounds, No Wheeze, Rales, Rhonchi Neuro: Alert and responsive, No focal deficits noted Abdomen: Soft, Non-Tender Skin: No rashes noted on visualized skin Musculoskeletal: No Chest Wall Tenderness Extremities: No Clubbing, No Cyanosis, No Edema, Normal Pulses, Other (right radial access site without hematoma. ) Results 06/30/17 03:45 06/30/17 03:45 Lab Results 06/30/17 06/30/17 03:45 03:45 WBC 11.4 H Hgb 12.3 L Hct 37.2 L Plt Count 191 Sodium 133 L Potassium 3.7 Chloride 101 Carbon Dioxide 26 BUN 21 Creatinine 0.87 Glucose 169 H Calcium 8.7 - Imaging and Cardiology Echo: report reviewed - EKG Interpretation EKG results cardiology: personally reviewed Consult Discharge Plan - Plan Referrals: Antonia Rutledge MD [Primary Care Provider] -
[2017-06-30] MEDS ORDERED: Ondansetron 4 MG/2 ML VIAL IVP PRN (10:42)
[2017-06-30] MEDS ORDERED: *HR* HYDROcodone/Acet 5/325 mg TABLET PO PRN (10:42)
[2017-06-30] MEDS ORDERED: *HR* Morphine 2 MG/ML SYRINGE IVP PRN (10:42)
[2017-06-30] MEDS ORDERED: Acetaminophen 325 MG TABLET PO PRN (10:42)
[2017-06-30] MEDS ORDERED: Nitroglycerin 0.4 MG TAB.SUBL SL PRN (10:42)
--- NOTE | 2017-06-30 13:10 | Electrocardiograph Report ---
[address] [place], [place] [address] Test Date: 2017-06-29 Pat Name: Torey Hale Department: 109 Room: [facility] Gender: M Dumpster Operator: PATRICIA : 1965 Requested By: Abraham Gamble Order Number: [id number] Reading MD: Abril Delarosa Measurements Intervals [place] Rate: 64 P: 52 IN: 159 QRS: 61 QRSD: 115 T: 111 QT: 434 QTc: 443 Interpretive Statements SINUS RHYTHM ANTEROLATERAL MYOCARDIAL INFARCTION, PROBABLY RECENT ACUTE OK Electronically Signed On 06-30-2017 12:58:19 EST by Abril Delarosa
[2017-07-01 05:21] LABS: Basophils % 0.4 %; Eosinophils # 0.2 K/mcL (0.0-0.6); Eosinophils % 1.5 %; Hemoglobin 12.1 g/dL (12.9-16.9); Immature Granulocytes % 0.3 % (0-4); Lymphocytes # 2.1 K/mcL (0.6-4.6); Lymphocytes % 20.4 %; Mean Corpuscular HGB Conc 33.6 g/dL (31.6-35.5); Mean Corpuscular Hemoglobin 28.8 pg (28.0-33.3); Mean Corpuscular Volume 85.7 fL (83.0-100.0); Mean Platelet Volume 11.1 fL (9.4-12.4); Monocytes # 1.2 K/mcL (0.0-1.3); Monocytes % 11.8 %; Neutrophils # 6.8 K/mcL (1.6-8.9); Platelet Count 196 K/mcL (140-400); Red Cell Distribution Width 11.9 % (11.5-14.5); Segmented Neutrophils % 65.6 %
[2017-07-01 05:31] LABS: BUN/Creatinine Ratio 22 (6-26); Blood Urea Nitrogen 21 mg/dL (8-26); Carbon Dioxide 29 mEq/L (19-29); Chloride 103 mEq/L (98-109); Glucose 152 mg/dL (70-99); Potassium 3.7 mEq/L (3.5-4.5); Sodium 136 mEq/L (136-145); eGFR For African Americans > 60 (> 60); eGFR For Non-African Americans > 60 (> 60)
[2017-07-01 05:32] LABS: Calcium 9.1 mg/dL (8.6-10.8); Osmolality,Calculated 288 (280-300)
[2017-07-01] MEDS ORDERED: *HR* Enoxaparin 40 MG/0.4 ML SYRINGE SQ SCH (06:00)
[2017-07-01 06:59] VITALS: BP 115/74
[2017-07-01] MEDS ORDERED: Aspirin 81 MG TAB.CHEW PO SCH (09:00)
[2017-07-01] MEDS ORDERED: Metoprolol XL (24 HR) Succ 25 MG TAB.ER.24H PO SCH (09:00)
[2017-07-01] MEDS: *HR* Ticagrelor 90 MG TABLET PO SCH (09:25)
--- NOTE | 2017-07-01 10:32 | Discharge Summary ---
Date of Encounter: 07/01/17 Time of Encounter: 10:00 - Discharge Diagnosis (1) Acute MO Priority: Primary Status: Acute Qualifiers: Myocardial infarction ST status: ST elevation myocardial infarction Involved coronary artery: LAD coronary artery Qualified Code(s): I21.02 - ST elevation (STEMI) myocardial infarction involving left anterior descending coronary artery (2) Cardiomyopathy Priority: Primary Status: Acute Qualifiers: Cardiomyopathy type: ischemic Qualified Code(s): I25.5 - Ischemic cardiomyopathy (3) Dyslipidemia Priority: Secondary Status: Chronic (4) Diabetes Priority: Secondary Status: Chronic Qualifiers: Diabetes mellitus type: type 2 Diabetes mellitus complication status: without complication Diabetes mellitus usp insulin use: without software design engineer use Qualified Code(s): E11.9 - Type 2 diabetes mellitus without complications - Discharge Medications Prescriptions: Nitroglycerin 0.4 mg SL Q5MIN PRN #25 tab.subl PRN Reason: Chest Pain Aspirin 81 mg PO DAILY #30 tab.chew Lisinopril [Zestril] 5 mg PO DAILY #30 tablet Metoprolol XL (24 HR) Succ [Toprol Xl] 25 mg PO DAILY #30 tab.er.24h Rosuvastatin [Crestor] 40 mg PO HS #30 tablet Ticagrelor [Brilinta] 90 mg PO BID #60 tablet Home Medications: Cartilage/Collagen/Bor/Hyalur [Joint Health Tablet] 1 tab PO TID 06/29/17 [ History] Aspirin 81 mg PO DAILY #30 tab.chew 07/01/17 [Rx] Lisinopril [Zestril] 5 mg PO DAILY #30 tablet 07/01/17 [Rx] Metoprolol XL (24 HR) Succ [Toprol Xl] 25 mg PO DAILY #30 tab.er.24h 07/01/17 [ Rx] Nitroglycerin 0.4 mg SL Q5MIN PRN #25 tab.subl 07/01/17 [Rx] Rosuvastatin [Crestor] 40 mg PO HS #30 tablet 07/01/17 [Rx] Ticagrelor [Brilinta] 90 mg PO BID #60 tablet 07/01/17 [Rx] Allergies/Adverse Reactions: 3 Allergy/AdvReac Type Severity Reaction Status Date / Time No Known Allergies Allergy Verified 06/29/17 14:18 Procedures/tests Complete & Pending: Procedures Performed prior 72 hours Category Date Time Status CL Cardiac Catheterization [CL] Routine Engine Watchman 06/29/17 06:35 Completed ECG 12 lead ECG [ECG] Routine Y 06/29/17 09:37 Ordered ECG 12 lead ECG [ECG] Routine Y 06/30/17 07:00 Ordered ECG 12 lead ECG [ECG] Stat Y 06/29/17 09:37 Completed EKG [ECG 12 lead ECG] [ECG] Routine Y 07/01/17 10:22 Ordered EV echocardiogram w enhance Routine Y 06/30/17 09:37 Completed Date of admission: 06/29/17 08:02 Primary care physician: Antonia Rutledge Consults: 06/29/17 09:37 Consult to Cardiac Rehabilitation-Phase1 [CONS] Routine Comment: Reason for Consult: AMI Call Completed: Yes Consult to Nurse Navigator [CONS] Routine Comment: 07/01/17 10:27 Consult to Gemologist [CONS] Routine Reason for SW Consult: Financial assist Discharging clinician: Ashok Villagran Anticipated date of discharge: 07/01/17 - Patient Status Disposition: Home, Self-Care Condition: Good Functional capacity at discharge: independent ambulation Overall status at discharge: patient is progressing back to baseline - Discharge Instructions Follow Up With: Antonia Rutledge MD [Primary Care Provider] - (APPOINTMENT MADE W/F.AMINATA BOWLES AT DR NOYOLA'S OFFICE) Nata Bowles CNP [Advanced Practice Nurse] - 07/08/17 4:00 pm Ashok Villagran CNP [Advanced Practice Nurse] - (CARDIOLOGY OFFICE WILL CALL YOU AT HOME W/FOLLOW UP APPOINTMENT DATE AND TIME.) Additional Instructions: RISK FACTORS: STOP SMOKING: If you smoke, STOP. Smoking or tobacco use significantly increases your risk of heart disease because nicotine causes the arteries to narrow or constrict. It also causes fats to stick to the artery. Your chances of having a heart attack are greatly increased if you continue to smoke. For more information, call the education line for smoking cessation 8-804-LREBKIV EAT A LOW FAT/CHOLESTEROL/SODIUM DIET: This diet may help reduce your chances of having a heart attack. LIFTING: With affected extremity: Avoid bending, pushing off and lifting more than 2 pounds for 24 hours The following 48 hours, avoid lifting anything more than 5 pounds Avoid strenuous activity or repetitive motions ACTIVITY: You may walk or climb stairs as tolerated You can resume sexual activity as tolerated In general, you are encouraged to engage in a minimum of 30 minutes or more of moderate intensity physical activity, such as brisk walking, daily or at least 3 -4 times weekly BATHING Do not submerge the site into water (bath tub, hot tub, swimming pool, dishes) for 1 week. This can be a source for infection into the blood stream. You may shower after 24 hours SITE CARE: After 24 hours, you may remove the dressing and leave the site open to air. Keep the site clean and dry. Clean gently and pat dry. You can expect bruising and tenderness that gradually resolve within a week or two. Return to work as instructed per your physician Resume driving as instructed per physician Keep all scheduled follow up appointments Resume medications as instructed IMPORTANT: If prescribed a Platelet Aggregation Inhibitor such as, Plavix, Brilinta or Effient: Duration of therapy is minimum one year These medications are often used in combination with Aspirin in prevention of future heart attacks Never discontinue unless consult with your Internist STROKE (CVA) Risk factors for a stroke are: Age, cigarette smoking, diabetes, excessive alcohol consumption, family history, high blood pressure, overweight, physical inactivity, prior stroke, heart attack, diagnosis of carotid artery stenosis or other artery disease. Warning signs: Sudden numbness or weakness of the face, arm or leg; especially on one side of the body, sudden confusion, trouble speaking or understanding, sudden trouble seeing in one or both eyes, sudden trouble walking, dizziness, loss of balance or coordination, sudden severe headache with no cause. Call 911 or go to the Emergency Room. CONGESTIVE HEART FAILURE: If you have been diagnosed with Congestive Heart Failure (CHF) and your symptoms return, make an appointment with your physician Weigh yourself daily. Notify your physician if you have a weight gain of two or more pounds in one day or five or more pounds in one week. If you experience any difficulty breathing, please call 911 BLEEDING: Although the risk of bleeding is minimal, it can happen. If you have any bleeding from the site, apply firm pressure above the puncture site for 10-15 minutes. If the bleeding does not stop, continue manual pressure and call 911 Contact [facility] ( ) if: You develop a fever greater than 101 degrees Fahrenheit Your site becomes reddened or has any drainage You have an increase in pain or burning at the site or if a large knot forms at the site. If you experience chest pain, shortness of breath, dizziness, or extreme tiredness, stop the activity and rest. Please notify [facility] office if you experience any of these symptoms and they are not relieved by rest please call 911! - Diet and Activity Activity: increase activity as tolerated Diet: low fat, low cholesterol - Hospital Course Hospital course: Mr. Hale is a 52 year old male with a history HTN and diet controlled diabetes who presented with chest pain. He was found to have an acute evolving anterior MO. He was taken emergently to the cardiac catheterization lab and received PTCA/Geno to his pLAD. There was a 60-70% mLCX artery stenosis remaining. EF 35-40%. TTE completed showed EF 30-35% with segmental wall motion abnormalities, no significant valvular disease. There was no complication from his procedure. He remained euvolemic. GDMT started. Importance of DAPT with asa and brilinta uninterrupted for minimum of one year reviewed with patient and he voiced understanding. Free 30 day brilinta card given and patient had medications filled prior to discharge. Continue statin and bb. There was no complication with his right radial access site. Activity restrictions reviewed as stated above. Phase one cardiac rehab ordered. Post discharge EKG shows NSR post anterior MO ST changes with deep T-wave inversion. Patient is chest pain free. Assessment and plan reviewed with Dr. Slade. Patient will be schedule in 1 week for post MO cardiology f/u. 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 Recommend patient to be off work for two weeks. Hgb A1c- 6.5. Noted to be up to 6.9 in the past. Initially instructed on diabetic diet by PCP, no medication. Patient noted to not follow with PCP since 2014. Appt will be made in 1-2 weeks with PCP to follow diabetes. - Time Spent with Patient Total time spent providing and/or coordinating discharge services: Greater than 30 minutes (1Hr) Physical Examination Vital Signs, Last 4 Hours Temp Pulse Resp BP Pulse Ox 07/01/17 06:58 98.3 F 72 17 115/74 98 General: Conversant, No Apparent Distress HEENT: Atraumatic, Normocephaly, Mucus Membranes Moist Neck: No JVD, Normal carotid pulses Cardiac: Reg Rate and Rhythm, Normal S1 and S2, No Murmur Lungs: Normal Breath Sounds, No Wheeze, Rales, Rhonchi Neuro: Alert and responsive, No focal deficits noted Abdomen: Soft, Non-Tender Skin: No rashes noted on visualized skin Musculoskeletal: No Chest Wall Tenderness Extremities: No Clubbing, No Cyanosis, No Edema, Normal Pulses, Other (Right radial access without hematoma. )
--- NOTE | 2017-07-02 20:01 | Electrocardiograph Report ---
[address] [place], [place] [address] Test Date: 2017-07-01 Pat Name: Torey Hale Department: 111 Room: 2NE24 Gender: [employer] Principal: : [id number] Requested By: Ashok Villagran Order Number: [id number] Reading MD: Abraham Gamble MD Measurements Intervals [place] Rate: 66 P: 52 CA: 154 QRS: 84 QRSD: 95 T: 137 QT: 441 QTc: 455 Interpretive Statements SINUS RHYTHM ANTEROLATERAL MYOCARDIAL INFARCTION, PROBABLY RECENT ACUTE [place] Electronically Signed On 07-02-2017 20:00:21 EST by Abraham Gamble MD
== END 2017-07-01 15:29 | disposition home or self-care (01) | DRG 247 ==
LOC: ICNU 08:02 → 2NENU 06-30 21:48
PROVIDERS: ADMIT Emergency Medicine; ATTEND Emergency Medicine